=== PATIENT | female | born 1985 | race Caucasian/White ===

== ENCOUNTER 2022-08-04 07:07 | Emergency (ER) | payer BC, SELFPAY ==
[2022-08-04 07:08] VITALS: BP 163/101; PULSE 102; RESP 16; TEMP 36.4; O2SAT 97; BMI 45.1
--- NOTE | 2022-08-04 07:34 | RAD_ITS ---
STUDY: X-RAY CHEST REASON FOR EXAM: Female, 36 years old. cough, sob TECHNIQUE: PA and lateral views of the chest. COMPARISON: None. FINDINGS: The lungs are clear and expanded. There is no demonstrated pleural abnormality. Normal size heart. Normal mediastinum and ochoa. Normal visualized pulmonary arteries. Normal visualized aortic arch and descending thoracic aorta. Normal visualized thoracic spine. Normal visualized ribs, clavicles, and shoulders. There is no demonstrated abnormality of the visualized soft tissue structures of the upper abdomen. RAD/Chest PA and Lateral IMPRESSION: Normal x-ray examination of the chest. Electronically Signed: Dani Jones MD at 8:43 EDT ,
--- NOTE | 2022-08-04 07:34 | EDS_ITS ---
HPI History of Present Illness Chief Complaint: Shortness of Breath Informant: patient Narrative Narrative: 36-year-old female with history of asthma states she has had cold symptoms for the last several days, yesterday she started having wheezing and asthma sympt oms, this morning albuterol was not helping which is why she became concerned and came in. She states she is a lot better now. She still has some chest tightness. No fevers or chills. Vaccinated against COVID and influenza. No known sick contacts lately. Coughed up some sputum and coughed up a small amount of blood this morning. [facility] Medical History (Updated 08/04/22 @ 09:[address] Ilia Kumar MD) Asthma Home Medications prednisone 20 mg tablet 40 mg PO DAILY #10 TABLETS 08/04/22 [Rx Last Taken Unknown] Allergy/AdvReac Type Severity Reaction Status Date / Time No Known Allergies Allergy Verified 08/04/22 07:10 Surgical History (Updated 08/04/22 @ 07:55 by Demetria Bautista) History of cholecystectomy Social History Smoking Status: Never smoker [facility] ED Constitutional Constitutional ED: Denies chills or fever(s) ENT ENT ED: Reports nasal congestion and sore throat; Denies ear pain or rhinorrhea Cardiovascular Cardiovascular: Denies chest pain or palpitations Respiratory/Chest Respiratory/Chest: Reports as per HPI, chest congestion, chest tightness, cough, dyspnea, hemoptysis and wheezing Gastrointestinal Gastrointestinal: Denies abdominal pain, diarrhea, nausea or vomiting Genitourinary Genitourinary ED: Denies dysuria or hematuria Musculoskeletal Musculoskeletal: Denies myalgias or neck pain Integumentary Denies abscess or rash Neurologic Neurologic: Denies headache(s), paresthesias or weakness Psychiatric Psychiatric: Denies depression or suicidal thoughts Endocrine Endocrinology: Denies polydipsia or polyuria EXAM Physical Exam Const Vital Signs: 08/04/22 07:08 08/04/22 07:55 08/04/22 07:57 Temperature 97.5 F L Temperature Source Temporal Pulse Rate 102 H 86 Respiratory Rate 16 18 Respiratory Effort Short of Breath Respiratory Pattern Normal Blood Pressure 163/101 H Blood Pressure Mean 121 Pulse Ox 97 97 Oxygen Delivery Method Room Air Room Air Room Air 08/04/22 07:57 08/04/22 07:57 Temperature Temperature Source Pulse Rate 82 Respiratory Rate 18 Respiratory Effort Respiratory Pattern Normal Blood Pressure Blood Pressure Mean Pulse Ox 96 Oxygen Delivery Method Room Air Positive well nourished, well developed and obese Constitutional Narrative: Conversive in full sentences no distress General Appearance ED: well developed and NAD Nutritional Appearance: obese HEENT Reports moist mucous membranes HEENT Narrative: Erythema posterior pharynx no exudates trismus or asymmetry/tonsillar abscess. Normal tongue no elevation. No sinus tenderness. normocephalic and atraumatic Throat: posterior oropharynx abnormal Eyes PERRL and EOMs intact bilaterally Neck no lymphadenopathy, supple and no meningeal signs Resp normal respiratory effort and clear to auscultation bilaterally Cardio no murmurs Rate: regular rate Rhythm: regular rhythm Neuro oriented x3, CN's II-XII intact bilaterally and no sensory deficits noted Sensorium / Orientation: alert Motor Exam: strength 5/5 throughout Psych mental status grossly normal Skin Lesions: no lesions Rashes: no rashes MDM MDM MDM Narrative Medical decision making narrative: Given hemoptysis chest x-ray was obtained, 2 views of my interpretation show no acute pneumonia. Radiology in agreement. She was given a DuoNeb treatment which did help her symptoms. We will start her on prednisone for her asthma, supportive care for what is likely a viral bronchitis given that her COVID and influenza are negative. She is comfortable with that plan. Radiography Diagnostic Testing: Clinical Impression(s) from Imaging Studies Chest X-Ray 08/04/22 07:34 IMPRESSION: Normal x-ray examination of the chest. Electronically Signed: Dani Jones MD at 8:43 EDT Reading Location ID and State: [facility], later [facility] / [place] , Service support , Discharge Plan Triage Chief Complaint: Shortness of Breath ED Provider: Ilia Kumar Dx/Rx/DC Orders Clinical Impression: Acute bronchitis, viral, Acute asthma exacerbation Instructions: Acute Bronchitis, ED Asthma, Acute (Adult) Prescriptions: New prednisone 20 mg tablet 40 mg PO DAILY Qty: 10 0RF Primary Care Provider: Care Physician,No Primary Referrals: Care Physician,No Primary [Primary Care Provider] - Doctor,Your [Non-Staff] - 3-5 Days if not improving Activity Restrictions/Additional Instructions: Start your prednisone prescription tomorrow morning since you already had a dose today. Disposition Disposition: Home, Self Care
[2022-08-04] MEDS: Ipratropium/Albuterol Sulfate 3 ML AMPUL.NEB INHALATION (07:52)
[2022-08-04] MEDS: predniSONE 20 MG Tablet 40 MG PO (07:54)
[2022-08-04 07:55] VITALS: O2SAT 97
[2022-08-04 07:57] VITALS: PULSE 82; PULSE 86; RESP 18; O2SAT 96; O2SAT 97
[2022-08-04 09:08] VITALS: RESP 18
== END 2022-08-04 09:10 | disposition home or self-care (01) ==
PROVIDERS: Emergency Provider Emergency Medicine; Visit Provider Emergency Medicine
DX: J20.9 Acute bronchitis, unspecified (principal); J45.901 Unspecified asthma with (acute) exacerbation; E66.9 Obesity, unspecified
CPT/HCPCS: 71046; 87428; 94640; 99283